=== PATIENT | male | born 1940 | race Caucasian/White ===

== ENCOUNTER → 2020-06-23 | Outpatient (REF) | payer MEDICARE | LOC: M SMT 17:06 | PROVIDERS: ATTEND Specialist | DX: C67.9 Malignant neoplasm of bladder, unspecified (principal) | CPT/HCPCS: 52000; 88108; G0463 ==

== ENCOUNTER 2020-07-26 09:28 | Day surgery (SDC) | payer MEDICARE ==
[~2020-07-26] VITALS: Ht 160 cm; Wt 86.2 kg
[2020-07-26] VITALS (7 sets, daily range): BP systolic 122–151; BP diastolic 51–67
[~2020-07-26 09:28] MED LIST: ASCO100013 PO; ASPI-161 PO; B-122500 PO; EZET10TA21; FISH1000 PO; LISI10TA22; LR 1,000 ML IV ONE; METF500T13; METO1TAB32; MICR1TAB5; OMEP-218 PO; ceFAZolin SOD 2 GM in IV 1 EA IV ONE
[2020-07-26] MEDS ORDERED: fentaNYL 100 MCG/2 ML INJECTION (J3010) As Ordered ONE (10:58)
[2020-07-26] MEDS ORDERED: ONDANSETRON 4MG/2ML VIAL As Ordered ONE (10:58)
[2020-07-26] MEDS ORDERED: METOCLOPRAMIDE INJ 10MG/2ML VIAL (J2765 PER 1) As Ordered ONE (10:58)
[2020-07-26] MEDS ORDERED: propofoL 200 MG/20 ML VIAL As Ordered ONE (10:58)
[2020-07-26] MEDS ORDERED: LIDOCAINE 2% 100MG/5ML SDV (FOR ANES.) As Ordered ONE (11:46)
[2020-07-26] MEDS ORDERED: ACETAMINOPHEN 1000MG 100ML IV BTL (OFIRMEV) (J0131 PER 10MG) As Ordered ONE (14:56)
[2020-07-26] MEDS ORDERED: SUGAMMADEX SODIUM 500 MG/5 ML VIAL (BRIDION) As Ordered ONE (14:57)
[2020-07-26] MEDS ORDERED: METOCLOPRAMIDE INJ 10MG/2ML VIAL (J2765 PER 1) IV PRN (15:00)
[2020-07-26] MEDS ORDERED: fentaNYL 100 MCG/2 ML INJECTION (J3010) IV PRN (15:00)
[2020-07-26] MEDS ORDERED: ONDANSETRON 4MG/2ML VIAL IV PRN (15:00)
[2020-07-26] MEDS ORDERED: NORCO, ANEXSIA 5/325MG TABLET (HYDROcodone/ACETAMINOPHEN) PO PRN (15:00)
[2020-07-26] MEDS ORDERED: LR 1,000 ML IV SCH (15:00)
--- NOTE | 2020-07-26 15:15 | ROOPDOC ---
[facility] Report Of Operation Report of Operation DATE OF PROCEDURE: 07/26/20 PREPROCEDURE DIAGNOSES: History of bladder cancer found to have a recurrence in the bladder and also papillary tissue throughout the prostatic fossa POSTPROCEDURE DIAGNOSES: Same PROCEDURE: Cystoscopy, bladder biopsies, fulguration TURP of the prostate SURGEON: Veronica Gilbert MD DIRECTOR AMBULATORY: None ANESTHESIA: Gen ESTIMATED BLOOD LOSS: Approximately 50 mL. 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 He had been seen Dr. Griffin who had since left. We did a cystoscopy in the office on 06/23/20 and saw a bladder lesion and multiple papillary lesions in the prostatic fossa. After discussing all different options, alternatives, risks, and benefits it was decided to bring the patient to the operating room or more definitive therapy. Informed consent was obtained in both verbal and written form. DESCRIPTION OF PROCEDURE: The patient had sequential compression devices in place and was given Ancef 2 g preoperatively. Gen. anesthesia was then induced. He was then placed in the lithotomy position and careful attention was paid that his pressure points were well-padded and protected. He was prepped and draped in the usual fashion. Next a 27 [place] resectoscope under direct vision was passed and actually 3 small papillary lesions were now seen on the left lateral wall of the bladder. These were removed with biopsy forceps and then fulgurated with a Bugbee. The prostatic urethra showed papillary tissue throughout. Using a loop resectoscope all this tissue was removed in a circumferential fashion and a partial TURP was completed. The prostatic urethra was open though upon completion and the vera montanum was intact along with the bilateral ureteral orifices. A 22 [place] three-way Trinh catheter was placed but the urine was quite clear but we did still place him on low continuous bladder irrigation. He tolerated the procedure well. VERONICA GILBERT MD Jul 26, 2020 15:15
[2020-07-27 02:00] VITALS: BP 130/58
[2020-07-27 06:00] VITALS: BP 127/57
[2020-07-27 10:00] VITALS: BP 117/59
== END 2020-07-27 11:16 | disposition home or self-care (01) ==
LOC: M SDC 09:28 → M MSPAV 15:41 → M SDC 07-27 11:16
PROVIDERS: ATTEND Specialist
DX: C67.2 Malignant neoplasm of lateral wall of bladder (principal); C61 Malignant neoplasm of prostate; I10 Essential (primary) hypertension; E78.5 Hyperlipidemia, unspecified; E11.9 Type 2 diabetes mellitus without complications; K21.9 Gastro-esophageal reflux disease without esophagitis; K57.92 Diverticulitis of intestine, part unspecified, without perforation or abscess without bleeding; Z92.21 Personal history of antineoplastic chemotherapy; Z79.82 Long term (current) use of aspirin; Z79.84 Long term (current) use of oral hypoglycemic drugs; Z79.899 Other long term (current) drug therapy
CPT/HCPCS: 36415; 52234; 52601; 88305; 88342; G0103; J0131; J0690; J2405; J2765; J3010

== ENCOUNTER → 2020-08-02 | Outpatient (REF) | payer MEDICARE ==
[~2020-08-02] MED LIST changes: -LR 1,000 ML IV ONE; -ceFAZolin SOD 2 GM in IV 1 EA IV ONE
[2020-08-02 13:15] LABS: APPEARANCE, URINE CLEAR (CLEAR); BACTERIA, URINE AUTO NEGATIVE (NEGATIVE); BILIRUBIN, URINE AUTO NEGATIVE (NEGATIVE); BLOOD, URINE BLOOD NEGATIVE (NEGATIVE); COLOR, URINE AMBER (YELLOW); GLUCOSE, URINE (UA) AUTO NEGATIVE (NEGATIVE); KETONE, URINE AUTO NEGATIVE (NEGATIVE); LEUKOCYTE ESTERASE, URINE AUTO NEGATIVE (NEGATIVE); NITRITE, URINE AUTO POSITIVE (NEGATIVE); PROTEIN, URINE AUTO 1+ mg/dL (NEGATIVE); RBC, URINE AUTO 22 /HPF (0-3); SPECIFIC GRAVITY URINE AUTO 1.018 (1.002-1.035); SQUAMOUS EPITHELIAL CELL UR AU 0 /HPF (0-6); WBC, URINE AUTO 4 /HPF (0-3)
== END ==
LOC: M SMT 12:41
PROVIDERS: ATTEND Nurse Practitioner Family
DX: C67.9 Malignant neoplasm of bladder, unspecified (principal); Z79.899 Other long term (current) drug therapy

== ENCOUNTER → 2020-11-26 | Outpatient (REF) | payer MEDICARE, MEDICAID | LOC: M SMT 12:45 | PROVIDERS: ATTEND Urology | DX: Z85.51 Personal history of malignant neoplasm of bladder (principal); Z79.899 Other long term (current) drug therapy ==

== ENCOUNTER → 2021-10-24 | Outpatient (REF) | payer MEDICARE, MEDICAID ==
[~2021-10-24] MED LIST changes: +OMEP-173 PO; -OMEP-218 PO
== END ==
LOC: M SMT 17:12
PROVIDERS: ATTEND Urology
DX: C67.9 Malignant neoplasm of bladder, unspecified (principal)